=== PATIENT | female | born 1960 | race Caucasian/White ===

== ENCOUNTER → 2017-12-27 13:16 | Outpatient (CLI) | payer BC, SELFPAY ==
--- NOTE | 2017-12-27 | DI.ECHO.S_ITS ---
[facility] +---------+ : : [address] : [address] [place] : : : : [id number] : : : : Phone: [phone] Echocardiogram Report + + :Name: MELANY MONAE Study Date: 12/27/2017 Height: 67 in : :[facility] Exam Location: [facility] Weight: 300 lb : : Gender: Female BSA: 2.4 m2 : :: 1960 Age: 57 yrs BP: 108/80 mmHg: :Reason For Study: MURU : :Ordering Physician: : :Meghna Stevenson Performed By: Ping Colin : :Referring: MEGHNA STEVENSON : + + Interpretation Summary 1) Normal left ventricular size, wall motion, and systolic function (EF 55- 60%). 2) Grossly, normal right ventricular size and function. 3) No significant valvular abnormalities. 4) No prior Echo available for comparison. Procedure: A two-dimensional transthoracic echocardiogram with color flow and Doppler was performed. The study quality was technically adequate. There is no prior echocardiogram noted for this patient. The patient was in normal sinus rhythm during the exam. Left Ventricle: The left ventricle is normal in size. Left ventricular wall thickness is at the upper limits of normal. The left ventricular ejection fraction is normal. The ejection fraction is estimated to be 55-60%. There are no obvious focal wall motion abnormalities noted but poor endocardial definition reduces the sensitivity for the detection of such. Diastolic parameters suggest probable normal left ventricular diastolic function and normal filling pressures. Right Ventricle: The right ventricle grossly appears normal in size with probable normal systolic function. Atria: The left atrium is mildly dilated. The right atrium is normal in size. There is no Doppler evidence for an interatrial shunt. Mitral Valve: The mitral valve leaflets are slightly calcified. There is mild mitral annular calcification. There is trace mitral regurgitation. Aortic Valve: The aortic valve is normal in structure and function. There is no aortic valve stenosis. No aortic regurgitation is present. Tricuspid Valve: The tricuspid valve is normal. There is a trace or physiologic amount of tricuspid regurgitation. The right ventricular systolic pressure is estimated to be at least least 23 mmHg based on an estimated right atrial pressure of 3 mm Hg. Pulmonic Valve: The pulmonic valve is not well visualized. Great Vessels: The aortic root is normal size. The ascending aorta is normal in size. The aortic arch could not be visualized. The pulmonary is not well visualized. The IVC is of normal diameter and collapses greater than 50% with a sniff. This suggests a low right atrial pressure of 3 mm Hg. Pericardium/ Pleura There is no pericardial effusion. There is no pleural effusion. MMode/2D Measurements & Calculations LVIDd: 4.4 cm LVOT diam: 1.9 cm LVIDs: 3.0 cm Ao root diam: 2.8 cm FS: 31.1 % asc Aorta Diam: 3.4 cm EPSS: 0.43 cm IVSd: 1.1 cm LVPWd: 0.98 cm LV estes. diameter/BSA (cm/m^2): 1.8 LV sys. diameter/BSA (cm/m^2): 1.3 LA A2 area: 28.3 cm2 RA long axis: 6.2 cm LA A4 area: 23.5 cm2 RA area: 18.7 cm2 LA length (vol): 6.2 cm RA vol: 47.7 ml LA vol: 90.6 ml RA : 19.9 ml/m2 LA vol index: 37.7 ml/m2 IVC diam: 1.5 cm TAPSE: 2.0 cm Doppler Measurements & Calculations Ao V2 max: 104.0 cm/sec LVOT Max Russell: 103.0 cm/sec Ao V2 mean: 78.9 cm/sec LV V1 max P.2 mmHg Ao max P.3 mmHg LV V1 VTI: 18.7 cm Ao mean P.7 mmHg STEPHON(I,D): 3.0 cm2 Ao V2 VTI: 17.5 cm STEPHON(V,D): 2.8 cm2 sev ratio: 1.1 STEPHON indexed to BSA (cm^2/m^2): 1.3 MV E max russell: 82.1 cm/sec TR max russell: 225.2 cm/sec MV A max russell: 67.3 cm/sec TR max P.3 mmHg MV E/A: 1.2 PA V2 max: 80.3 cm/sec Med Peak E' Russell: 8.1 cm/sec PA V2 mean: 56.7 cm/sec E/E' med: 10.1 PA mean P.4 mmHg Lat Peak E' Russell: 9.4 cm/sec PA pr(Accel): 39.1 mmHg E/E' lat: 8.8 E/e' average: 9.4 MV dec time: 0.21 sec Reading Physician:06:46 PM
== END ==
PROVIDERS: PCP Family Medicine; Visit Provider Family Medicine
DX: R01.1 Cardiac murmur, unspecified (principal)
CPT/HCPCS: 93306

== ENCOUNTER → 2019-08-21 17:52 | Outpatient (CLI) | payer BC, SELFPAY ==
--- NOTE | 2019-08-21 17:55 | DI.RAD.S_ITS ---
PROCEDURE: XR LUMBAR SPINE 2-3V INDICATIONS: LOW BACK PAIN TECHNIQUE: 3 views of the lumbar spine were acquired. COMPARISON: [facility], MR, L-SPINE WITHOUT CONTRAST, 12/13/2005, 17:45. FINDINGS: Bones: 5 [id number] vertebrae are present. Near normal alignment. No acute vertebral body compression fractures. No suspicious bony lesions. Soft tissues: Overlying bowel gas pattern is normal. No suspicious soft tissue calcifications. Enteric tube projecting over the distal stomach. Clips in the pelvis bilaterally. IMPRESSION: No acute compression fracture. If trauma was significant consider further evaluation with CT abdomen pelvis with IV contrast. Dictated by: Jass Gil M.D. on 08/22/2019 at 9:34 Approved by: Jass Gil M.D. on 08/22/2019 at 9:38
== END ==
PROVIDERS: PCP Family Medicine; Referring Provider Family Medicine; Visit Provider Family Medicine
DX: M54.5 Low back pain (principal)
CPT/HCPCS: 72100

== ENCOUNTER → 2019-09-18 18:48 | Outpatient (CLI) | payer BC, SELFPAY ==
--- NOTE | 2019-09-18 18:49 | DI.MRI.S_ITS ---
PROCEDURE: MR LUMBAR SPINE WO CON INDICATIONS: LUMBAR RADICULOPATHY TECHNIQUE: Noncontrast sagittal T1 spin echo and T2 fast echo, sagittal STIR, axial T1 and T2 fast spin echo through the lumbar spine. In cases with scoliosis, additional coronal T2 fast spin echo may be performed. COMPARISON: [facility], CR, XR LUMBAR SPINE 2-3V, 08/21/2019, 17:50. [facility], MR, L-SPINE WITHOUT CONTRAST, 09/02/2015, 19:20. FINDINGS: Image quality: Excellent. Alignment and Curvature: 5 lumbar type vertebral bodies are present by plain film. There is mild grade 1 anterolisthesis of L4 on L5. Mild grade 1 retrolisthesis of L5 on S1. Bone Marrow: Marrow is of normal overall signal. No acute vertebral body compression fractures. There is mild reactive signal within the endplates adjacent to the L4-L5 and L5-S1 intervertebral discs. Spinal Cord: Conus medullaris terminates at the lower L1 level. Visualized cord demonstrates normal signal and size. Paraspinous Soft Tissues: No paravertebral masses. L1-L2: Mild facet and ligamentum flavum hypertrophy. Mild epidural lipomatosis. Mild canal stenosis. Mild bilateral foraminal stenosis. No change. L2-L3: Mild facet and ligamentum flavum hypertrophy. Mild epidural lipomatosis. Mild canal stenosis. Mild bilateral foraminal stenosis. No change. L3-L4: Mild facet and ligamentum flavum hypertrophy. Mild epidural lipomatosis. There is increased, moderate canal stenosis. No change in mild bilateral foraminal stenosis. L4-L5: Moderate disc desiccation. Mild diffuse disc bulge. Mild facet and ligamentum flavum hypertrophy. Mild epidural lipomatosis. Mild canal stenosis. Mild bilateral foraminal stenosis. No change. L5-S1: Moderate disc height loss and desiccation. Mild diffuse disc bulge. Mild bilateral facet hypertrophy. Mild canal stenosis. Mild bilateral foraminal stenosis. No change. IMPRESSION: 1. Multilevel degenerative disc and facet disease, as well as ligamentum flavum hypertrophy and epidural lipomatosis. 2. Multilevel canal stenosis, worst at L3-L4, where there is increased, moderate canal stenosis. 3. Mild multilevel foraminal stenosis. Dictated by: Mary Vick M.D. on 09/19/2019 at 9:33 Approved by: Mary Vick M.D. on 09/19/2019 at 9:43
== END ==
PROVIDERS: PCP Family Medicine; Referring Provider Family Medicine; Visit Provider Family Medicine
DX: M51.16 Intervertebral disc disorders with radiculopathy, lumbar region (principal); M51.17 Intervertebral disc disorders with radiculopathy, lumbosacral region; M48.061 Spinal stenosis, lumbar region without neurogenic claudication; M48.07 Spinal stenosis, lumbosacral region; E88.2 Lipomatosis, not elsewhere classified
CPT/HCPCS: 72148

== ENCOUNTER 2019-09-22 17:03 | Observation (INO) | payer BC, SELFPAY ==
[2019-09-22] VITALS (14 sets, daily range): BP systolic 141–173; BP diastolic 70–93; PULSE 74–96; RESP 13–27; TEMP 36.3–36.6; O2SAT 97–100; BMI 47.0
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
--- NOTE | 2019-09-22 18:50 | DI.CT.S_ITS ---
PROCEDURE: CT ANGIO HEAD AND NECK INDICATIONS: dizziness, stroke eval TECHNIQUE: Pre-contrast 4.5 mm thick sections acquired from the foramen magnum to the vertex. After the administration of intravenous contrast, 1 mm thick sections acquired from the aortic arch through the [place] of [place]. Post-contrast 4.5 mm thick sections then re-acquired from the foramen magnum to the vertex. 3-dimensional wopnvne-lvnvsesyo-njnlrvntyb (MIP) and/or volume rendering reformats were acquired of the central intracranial vasculature and neck separately. COMPARISON: None. FINDINGS: Image quality: Excellent. BRAIN: CSF spaces: Ventricles are normal in size and shape. Basal cisterns are patent. No extra-axial fluid collections. Brain: No midline shift. No intracranial bleeds or masses. Robison-white matter interface appears intact. Skull and face: Calvarium and facial bones appear intact, without suspicious lesions. Orbits appear normal. Sinuses: Sinuses and mastoids are clear. HEAD CT ANGIOGRAPHY: Anterior circulation: Intracranial internal carotid arteries are normal in size and flow. Atrophic appearing left A1 segment The flow within the paired anterior cerebral arteries is normal and symmetric. The flow within the middle cerebral arteries is normal and symmetric. The anterior communicating artery is seen. No aneurysms are seen. Posterior circulation: Visualized portions of the vertebral arteries demonstrate normal caliber, and join to form a normal appearing basilar artery. Flow within the posterior cerebral arteries is normal and symmetric. No aneurysms are seen. NECK CT ANGIOGRAPHY: Carotid system: The great vessels demonstrate a conventional anatomy as they arise from the aortic arch. The origins of the common carotid arteries appear patent. The common carotid arteries demonstrate normal caliber and courses. The bifurcation regions are both widely patent. The internal carotid arteries demonstrate normal calibers and courses. There is minimal right carotid atherosclerosis. Posterior circulation: The origins of the vertebral arteries both appear widely patent. The more superior extracranial portions of both vertebral arteries also demonstrate normal courses and calibers. They join to form a normal appearing basilar artery. Coronary artery calcifications are present. Bones: No suspicious bony lesions. Cervical spondylosis and straightening of the normal lordotic curvature.. IMPRESSION: No focal intracranial stenosis or occlusion No hemodynamically significant ICA stenosis Any quantitative measurements of stenosis were performed using NASCET criteria. Dictated by: Konstantin Che M.D. on 09/22/2019 at 19:53 Approved by: Konstantin Che M.D. on 09/22/2019 at 19:58
--- NOTE | 2019-09-22 18:50 | DI.CT.S_ITS ---
PROCEDURE: CT HEAD/BRAIN WO CON INDICATIONS: dizziness, stroke eval NO TPA TECHNIQUE: Noncontrast 4.5 mm thick angled axial sections acquired from the foramen magnum to the vertex, with coronal and sagittal reformats. For radiation dose reduction, the following was used: automated exposure control, adjustment of mA and/or kV according to patient size. COMPARISON: None. FINDINGS: Image quality: Excellent. CSF spaces: Basal cisterns are patent. No extra-axial fluid collections. Ventricles are normal in size and shape. Brain: No midline shift. No intracranial masses or hemorrhage. Robison-white matter interface is normal. Skull and face: Calvarium and visualized facial bones are intact, without suspicious lesions. Sinuses: Visualized sinuses and mastoids are clear. IMPRESSION: No acute intracranial process. Dictated by: Konstantin Che M.D. on 09/22/2019 at 19:22 Approved by: Konstantin Che M.D. on 09/22/2019 at 19:23
[2019-09-22] MEDS: ONDANSETRON 4 MG/2 ML INJ IV (18:57)
[2019-09-22] MEDS: SODIUM CHLORIDE 0.9% 1,000 ML 1000 ML IV (18:57)
[2019-09-22 19:07] LABS: Add Manual Diff / Slide Review NO; Basophils Absolute Auto 100 /uL (0-100); Basophils Percent Auto 0.9 % (0-2); Eosinophils Absolute Auto 100 /uL (0-450); Eosinophils Percent Auto 0.6 % (2-4); Hematocrit 41.6 % (36-46); Hemoglobin 13.8 g/dL (12.0-16.0); Lymphocytes Absolute Auto 1400 /uL (1100-4500); Lymphocytes Percent Auto 15.8 % (25-40); Mean Corpuscular HGB Conc 33.2 % (30-36); Mean Corpuscular Hemoglobin 28.6 PG (26-34); Mean Corpuscular Volume 86.4 fL (80-100); Monocytes Absolute Auto 300 /uL (0-900); Monocytes Percent Auto 3.9 % (3-14); Neutrophils Absolute Auto 6900 /uL (1500-7000); Neutrophils Percent Auto 78.8 % (50-75); Platelet Count 280 X10^3/uL (150-400); Red Blood Cell Count 4.82 X10^6/uL (4.0-5.2); White Blood Cell Count 8.8 X10^3/uL (4.5-11.0)
[2019-09-22 19:18] LABS: Creatine Kinase 74 U/L (30-135)
[2019-09-22 19:19] LABS: Alanine Aminotransferase 26 IU/L (<35); Albumin 4.2 g/dL (3.5-5.0); Albumin Globulin Ratio 1.5 (1.0-2.8); Alkaline Phosphatase 102 U/L (38-126); Aspartate Aminotransferase 40 IU/L (14-36); BUN Creatinine Ratio 17.7 (6-22); Bilirubin Total 0.8 mg/dL (0.2-1.3); Blood Urea Nitrogen 14 mg/dL (7-17); Calcium 10.1 mg/dL (8.4-10.2); Carbon Dioxide 29 mmol/L (22-32); Chloride 96 mmol/L (98-107); Estimated Glomerular Filt Rate > 60.0 mL/min (>60); Globulin 2.8 g/dL (1.7-4.1); Glucose 352 mg/dL (70-100); HEMOLYSIS 20 (0-50); Potassium 3.3 mmol/L (3.4-5.1); Sodium 137 mmol/L (137-145)
[2019-09-22 19:31] LABS: Troponin I < 0.012 ng/mL (0.01-0.034)
[2019-09-22] MEDS: MECLIZINE HCL 12.5 MG TABLET 50 MG PO (20:13)
[2019-09-22 21:01] LABS: RBC Urine None Seen (0-5/HPF)
[2019-09-22] MEDS: ASPIRIN 81 MG CHEW TAB 324 MG PO (21:03)
[2019-09-22 21:19] LABS: Bacteria Urine Few (2-10); Culture Indicated Urine Cult Not Indicated; Squamous Epithelial Cell Urine 1-5 /HPF (0-5/HPF); WBC Urine 0-1/HPF (0-5/HPF)
[2019-09-22] MEDS: SODIUM CHLORIDE 0.9% 1,000 ML 125 ML IV (22:45)
[2019-09-23] VITALS (8 sets, daily range): BP systolic 135–156; BP diastolic 75–104; PULSE 77–97; RESP 16–18; TEMP 36.3–37; O2SAT 93–99
[2019-09-23 00:01] LABS: COVID19 -Nasal RAPID Negative (Negative)
[2019-09-23] MEDS: MECLIZINE HCL 12.5 MG TABLET 25 MG PO (06:05)
[2019-09-23] MEDS: SODIUM CHLORIDE 0.9% 1,000 ML 125 ML IV (06:06)
--- NOTE | 2019-09-23 08:42 | DI.ECHO.S_ITS ---
[facility]---------+ [facility] +---------+ : : [address] : : : : [id number] : : : : Phone: [phone]+ Echocardiogram Report + + :Name: MELANY BELLA Study Date: 09/23/2019 Height: 67 in : :Hospital Weight: 300 lb : : Gender: Female BSA: 2.4 m2 : :: 1960 Age: 59 yrs BP: 135/83 mmHg: :Reason For Study: R/O CVA : :Ordering Physician: HOSPITALIST, : :JULITO Performed By: Marly Walker : :Referring: MATTHEW CHACON : + + Interpretation Summary The left ventricle is normal in size and wall thickness. Left ventricular systolic function is normal without focal wall motion abnormalities. The ejection fraction is estimated to be 60-65%. The right ventricle is normal in size and function. The right ventricular systolic pressure is estimated to be at least 23 mmHg based on an estimated right atrial pressure of 3 mm Hg. Both atria are normal in size. There is no Doppler evidence for an interatrial shunt. Injection of contrast documented no interatrial shunt. There is no significant valvular heart disease. The ascending aorta is mildly enlarged. Procedure: A two-dimensional transthoracic echocardiogram with color flow and Doppler was performed. The study quality was technically adequate. There is no prior echocardiogram noted for this patient. The injection was performed through an intravenous line in the right arm. A saline contrast injection was performed to assess for cardiac shunting. The patient was in sinus rhythm with heart rates between 76-88 bpm during the exam. Left Ventricle: The left ventricle is normal in size and wall thickness. Left ventricular systolic function is normal without focal wall motion abnormalities. The ejection fraction is estimated to be 60-65%. Diastolic parameters suggest a relaxation abnormality of the left ventricle, consistent with probable normal filling pressures. Right Ventricle: The right ventricle is normal in size and function. Atria: Both atria are normal in size. There is no Doppler evidence for an interatrial shunt. Injection of contrast documented no interatrial shunt. Mitral Valve: The mitral valve leaflets appear mildly thickened, but open well. There is mild mitral annular calcification. There is trace mitral regurgitation. Aortic Valve: The aortic valve is mildly calcified. The aortic valve is trileaflet. The aortic valve opens well. There is no aortic valve stenosis. There is trace aortic regurgitation. Tricuspid Valve: The tricuspid valve is normal in structure and function. There is mild tricuspid regurgitation. The right ventricular systolic pressure is estimated to be at least 23 mmHg based on an estimated right atrial pressure of 3 mm Hg. Pulmonic Valve: The pulmonic valve is not well visualized. The pulmonic valve is not well seen, but is grossly normal. There is trace pulmonic regurgitation. There is no significant valvular heart disease. Great Vessels: The aortic root is normal size. The ascending aorta is mildly enlarged. The IVC is of normal diameter and collapses greater than 50% with a sniff. This suggests a low right atrial pressure of 3 mm Hg. Pericardium/ Pleura There is no pericardial effusion. There is no pleural effusion. MMode/2D Measurements & Calculations LVIDd: 4.4 cm LVOT diam: 2.0 cm LVIDs: 3.1 cm Ao root diam: 2.4 cm FS: 29.3 % asc Aorta Diam: 3.4 cm EPSS: 0.49 cm Ao Arch Diam (Prox Trans): 3.0 cm IVSd: 0.94 cm LVPWd: 0.98 cm LV estes. diameter/BSA (cm/m^2): 1.8 LV sys. diameter/BSA (cm/m^2): 1.3 LA A2 area: 16.0 cm2 RA long axis: 4.4 cm LA A4 area: 15.5 cm2 RA area: 13.3 cm2 LA length (vol): 5.1 cm RA vol: 33.8 ml LA vol: 41.1 ml RA : 14.1 ml/m2 LA vol index: 17.1 ml/m2 IVC diam: 1.3 cm RVD1 (basal): 2.9 cm TAPSE: 2.4 cm Doppler Measurements & Calculations Ao V2 max: 186.0 cm/sec LVOT Max Russell: 131.0 cm/sec Ao V2 mean: 128.1 cm/sec LV V1 max P.9 mmHg Ao max P.8 mmHg LV V1 VTI: 25.4 cm Ao mean P.4 mmHg STEPHON(I,D): 2.1 cm2 Ao V2 VTI: 40.5 cm STEPHON(V,D): 2.3 cm2 sev ratio: 0.63 STEPHON indexed to BSA (cm^2/m^2): 0.86 MV E max russell: 83.4 cm/sec TR max russell: 224.6 cm/sec MV A max russell: 94.4 cm/sec TR max P.2 mmHg MV E/A: 0.88 PA V2 max: 103.8 cm/sec Med Peak E' Russell: 5.7 cm/sec PA V2 mean: 59.6 cm/sec E/E' med: 14.6 PA mean P.7 mmHg Lat Peak E' Russell: 7.7 cm/sec E/E' lat: 10.9 E/e' average: 12.7 MV dec time: 0.20 sec SV(LVOT): 83.7 ml Reading Physician:01:28 PM
--- NOTE | 2019-09-23 08:45 | DI.MRI.S_ITS ---
PROCEDURE: MR STROKE Pre- and post-contrast brain MRI, non-contrast brain MR angiogram, pre- and postcontrast neck MR angiogram INDICATIONS: r/o CVA TECHNIQUE: Brain: Noncontrast axial T1 spin echo, axial T2 fast spin echo, sagittal and axial FLAIR, coronal T2 fast spin echo, axial gradient echo, axial diffusion and ADC through the brain. After the administration of contrast, axial 3D VIBE of the cranial vasculature and brain. Brain MRA: Non-contrast 3-D time of flight MR angiogram, with multiple gagvzss-evqtirkzk-txvgrcdimx (MIP) reformats performed. Neck MRA: Axial and sagittal TruFISP through the neck. Coronal dynamic MR angiogram during administration of contrast in the arterial and venous phases, with 3-dimenstional cgvioas-waczyvlml-xcopydfnic (MIP) reformats constructed from subtraction images. COMPARISON: [facility], CT, CT HEAD/BRAIN WO CON, 09/22/2019, 19:01. [facility], CT, CT ANGIO HEAD AND NECK, 09/22/2019, 19:05. FINDINGS: Image quality: Excellent. BRAIN: CSF spaces: Ventricles are normal in size and shape. Basal cisterns are patent. No extra-axial fluid collections. Brain: No intracranial bleeds or mass effects. Robison-white matter interface is normal. Diffusion weighted images show no acute ischemic insults. Brainstem appears normal. Normal intravascular flow voids are present. No abnormal intracranial enhancement. Skull and face: Calvarial marrow signal is normal. Orbits appear normal. Sinuses: Sinuses and mastoids are clear. BRAIN MR ANGIOGRAM: Anterior circulation: Intracranial internal carotid arteries are normal in size and enhancement. There is a diminutive left A1 segment, with a corresponding robust right A1 segment. This is considered to be a normal developmental variant of the [place], of typically no clinical consequence. The flow within the paired anterior cerebral arteries is otherwise normal and symmetric. The flow within the middle cerebral arteries is normal and symmetric. The anterior communicating artery is seen. No stenoses, occlusions, or aneurysms. Posterior circulation: The visualized portions of the vertebral arteries demonstrate normal caliber, and join to form a normal appearing basilar artery. The flow within the posterior cerebral arteries is normal and symmetric. No stenoses, occlusions, or aneurysms. NECK MR ANGIOGRAM: Carotids: Great vessels demonstrate a conventional anatomy as they arise from the aortic arch. The origins of the common carotid arteries appear patent. Note is made of an accessory anterior cerebral artery branch, which emanates from the anterior communicating artery itself. The calibers and courses of both common carotid arteries are normal. The bifurcation regions appear normal bilaterally. The internal carotid arteries demonstrate normal course and caliber. Posterior circulation: The origins of the vertebral arteries appear patent. More superior portions of both vertebral arteries demonstrate normal course and caliber, and join to form a normal appearing basilar artery. Miscellaneous: Subclavian arteries appear patent. Pre-contrast images through the neck show no soft tissue abnormalities. IMPRESSION: BRAIN MRI: No findings of acute or subacute infarction can be seen. No acute intracranial process is seen. No masses or abnormal enhancement can be seen. BRAIN MR ANGIOGRAM: No significant intracranial arterial abnormality is seen. Incidental note is made of intracranial developmental anomalies, which are not regarded to be clinically significant. NECK MR ANGIOGRAM: Within the arteries of the neck, no hemodynamically significant stenosis can be seen. Dictated by: Mir Cheng M.D. on 09/23/2019 at 10:53 Approved by: Mir Cheng M.D. on 09/23/2019 at 10:56
[2019-09-23] MEDS: ONDANSETRON 4 MG/2 ML INJ IV ×2 (08:58→15:22)
[2019-09-23 09:12] LABS: Add Manual Diff / Slide Review NO; Basophils Absolute Auto 100 /uL (0-100); Basophils Percent Auto 1.2 % (0-2); Eosinophils Absolute Auto 200 /uL (0-450); Eosinophils Percent Auto 2.7 % (2-4); Hematocrit 35.6 % (36-46); Hemoglobin 11.9 g/dL (12.0-16.0); Lymphocytes Absolute Auto 2600 /uL (1100-4500); Lymphocytes Percent Auto 38.8 % (25-40); Mean Corpuscular HGB Conc 33.3 % (30-36); Mean Corpuscular Hemoglobin 28.8 PG (26-34); Mean Corpuscular Volume 86.4 fL (80-100); Monocytes Absolute Auto 500 /uL (0-900); Monocytes Percent Auto 7.5 % (3-14); Neutrophils Absolute Auto 3300 /uL (1500-7000); Neutrophils Percent Auto 49.8 % (50-75); Platelet Count 254 X10^3/uL (150-400); Red Blood Cell Count 4.12 X10^6/uL (4.0-5.2); White Blood Cell Count 6.7 X10^3/uL (4.5-11.0)
[2019-09-23 09:22] LABS: Alanine Aminotransferase 20 IU/L (<35); Albumin 3.5 g/dL (3.5-5.0); Albumin Globulin Ratio 1.3 (1.0-2.8); Alkaline Phosphatase 92 U/L (38-126); Aspartate Aminotransferase 26 IU/L (14-36); BUN Creatinine Ratio 17.8 (6-22); Bilirubin Total 0.5 mg/dL (0.2-1.3); Blood Urea Nitrogen 13 mg/dL (7-17); Calcium 9.1 mg/dL (8.4-10.2); Carbon Dioxide 29 mmol/L (22-32); Chloride 102 mmol/L (98-107); Estimated Glomerular Filt Rate > 60.0 mL/min (>60); Globulin 2.8 g/dL (1.7-4.1); Glucose 287 mg/dL (70-100); HEMOLYSIS < 15 (0-50); Sodium 138 mmol/L (137-145); Total Protein 6.3 g/dL (6.3-8.2)
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
--- NOTE | 2019-09-23 10:49 | PC.NURSE ---
Day shift: Pt off unit for MRI at approx 1030. Remains off unit at this time.
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
--- NOTE | 2019-09-23 11:21 | PC.NURSE ---
Day shift: Pt back on unit at approx 1115.
[2019-09-23] MEDS: INSULIN ASPART 100 UNIT/ML INSULN PEN SUBCUT ×3 (12:16→21:29)
[2019-09-23] MEDS: POTASSIUM CHLORIDE 40 MEQ in SODIUM CHLORIDE 0.9% 500 ML 130 ML IV (13:09)
[2019-09-23] MEDS: KCL 40 MEQ IN NS 1,000 ML 125 MEQ IV (13:15)
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
[2019-09-23] MEDS: ENOXAPARIN 40 MG/0.4 ML SYRINGE SUBCUT (13:22)
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
[2019-09-23] MEDS: diazePAM 5 MG TABLET PO (15:22)
[2019-09-23] MEDS: cloNIDine 0.1 MG TABLET 0.2 MG PO (21:33)
[2019-09-23] MEDS: DULOXETINE 30 MG CAPSULE PO (21:33)
[2019-09-23] MEDS: glipiZIDE XL 5 MG TAB PO (21:33)
[2019-09-23] MEDS: SIMVASTATIN 20 MG TABLET PO (21:33)
[2019-09-24] MEDS: KCL 40 MEQ IN NS 1,000 ML 125 MEQ IV (01:34)
[2019-09-24] MEDS: MECLIZINE HCL 12.5 MG TABLET 25 MG PO (01:59)
[2019-09-24 05:25] VITALS: BP 125/75; PULSE 62; RESP 16; TEMP 36.2; O2SAT 97
[2019-09-24 05:40] LABS: Add Manual Diff / Slide Review NO; Basophils Absolute Auto 100 /uL (0-100); Basophils Percent Auto 0.9 % (0-2); Eosinophils Absolute Auto 300 /uL (0-450); Eosinophils Percent Auto 5.5 % (2-4); Hematocrit 34.1 % (36-46); Hemoglobin 11.1 g/dL (12.0-16.0); Lymphocytes Absolute Auto 2800 /uL (1100-4500); Mean Corpuscular HGB Conc 32.5 % (30-36); Mean Corpuscular Hemoglobin 28.6 PG (26-34); Mean Corpuscular Volume 87.8 fL (80-100); Monocytes Absolute Auto 600 /uL (0-900); Monocytes Percent Auto 9.1 % (3-14); Neutrophils Absolute Auto 2400 /uL (1500-7000); Neutrophils Percent Auto 38.5 % (50-75); Platelet Count 224 X10^3/uL (150-400); Red Blood Cell Count 3.88 X10^6/uL (4.0-5.2); Red Cell Distribution Width 14.4 % (11.6-14.8); White Blood Cell Count 6.2 X10^3/uL (4.5-11.0)
[2019-09-24 05:45] LABS: Alanine Aminotransferase 17 IU/L (<35); Albumin 3.2 g/dL (3.5-5.0); Albumin Globulin Ratio 1.3 (1.0-2.8); Alkaline Phosphatase 78 U/L (38-126); Aspartate Aminotransferase 24 IU/L (14-36); BUN Creatinine Ratio 16.9 (6-22); Bilirubin Total 0.4 mg/dL (0.2-1.3); Blood Urea Nitrogen 13 mg/dL (7-17); Calcium 9.1 mg/dL (8.4-10.2); Carbon Dioxide 26 mmol/L (22-32); Chloride 107 mmol/L (98-107); Estimated Glomerular Filt Rate > 60.0 mL/min (>60); Globulin 2.4 g/dL (1.7-4.1); Glucose 251 mg/dL (70-100); HEMOLYSIS < 15 (0-50); Sodium 138 mmol/L (137-145); Total Protein 5.6 g/dL (6.3-8.2)
[2019-09-24] MEDS: ONDANSETRON 4 MG/2 ML INJ IV (06:37)
[2019-09-24 08:00] VITALS: BP 141/84; PULSE 78; RESP 16; TEMP 36.1; O2SAT 97
[2019-09-24] MEDS: cloNIDine 0.1 MG TABLET 0.2 MG PO ×2 (09:03→20:58)
[2019-09-24] MEDS: buPROPion XL 150 MG TAB 300 MG PO (09:03)
[2019-09-24] MEDS: LOSARTAN 50 MG TABLET 100 MG PO (09:03)
[2019-09-24] MEDS: glipiZIDE XL 5 MG TAB PO ×2 (09:03→20:58)
[2019-09-24] MEDS: DULOXETINE 30 MG CAPSULE PO ×2 (09:03→20:58)
[2019-09-24] MEDS: ENOXAPARIN 40 MG/0.4 ML SYRINGE SUBCUT (09:03)
[2019-09-24] MEDS: INSULIN ASPART 100 UNIT/ML INSULN PEN SUBCUT ×4 (09:04→20:58)
[2019-09-24] MEDS: diazePAM 2 MG TABLET PO ×2 (09:12→20:57)
[2019-09-24 11:23] VITALS: BP 124/73; PULSE 85; RESP 15; TEMP 37.1; O2SAT 97
--- NOTE | 2019-09-24 12:39 | PC.NURSE ---
Addendum entered by Jane Solorio R.N. 09/24/19 12:42: Patient is awake and eating lunch. Tolerating well... O nausea noted. Original Note: Patient denies nausea while resting in bed. This is mostly happening when she gets up and ambulates to use the bathroom. She will work with a Vestibular therapist due to be here around 1345. in and saw patient earlier and has put patient on Valuim 2mg routinely. She has been sleeping quite a lot on this shift.
--- NOTE | 2019-09-24 13:46 | P.PN_ITS ---
Subjective Subjective Date Patient Seen: 09/24/19 Time Patient Seen: 08:39 Interval history: Patient overall continues to feel quite dizzy this morning. She did feel better when she was given the 1 dose of Valium last night. Got some sleep. Overnight had no major issues but woke up this morning quite dizzy. Nauseated. No headaches. No numbness or tingling. But just does not feel well. Does not feel like she can go home. Does not feel like she will function well. Exam Vital Signs (past 8 hours): - 09/24/19 08:00 09/24/19 11:23 Temperature 96.9 F L 98.7 F Pulse Rate 78 85 Respiratory Rate 16 15 Blood Pressure 141/84 H 124/73 Pulse Oximetry 97 97 Oxygen Delivery Method Room Air Oxygen Flow Rate 0 Narrative Exam Narrative: Alert obese female lying in bed with tell on had no acute distress. Fatigued in appearance HEENT mucous membranes moist neck supple wit hout adenopathy lungs are clear. Heart regular rate and rhythm. Neurologic exam is nonfocal she does have some lateral gaze nystagmus but is not consistent. [id number] is normal Objective Labs Result Diagrams: 09/24/19 05:00 09/24/19 05:00 Labs: Laboratory Results - last 24 hr 09/24/19 09/24/19 05:00 05:00 WBC 6.2 RBC 3.88 L Hgb 11.1 L Hct 34.1 L MCV 87.8 MCH 28.6 MCHC 32.5 RDW 14.4 Plt Count 224 Neut % (Auto) 38.5 L Lymph % (Auto) 46.0 H [place] % (Auto) 9.1 Eos % (Auto) 5.5 H Baso % (Auto) 0.9 Neut # (Auto) 2400 Lymph # (Auto) 2800 [place] # (Auto) 600 Eos # (Auto) 300 Baso # (Auto) 100 Sodium 138 Potassium 4.0 Chloride 107 Carbon Dioxide 26 BUN 13 Creatinine 0.77 Estimated GFR > 60.0 BUN/Creatinine Ratio 16.9 Glucose 251 H Calcium 9.1 Total Bilirubin 0.4 AST 24 ALT 17 Alkaline Phosphatase 78 Total Protein 5.6 L Albumin 3.2 L Globulin 2.4 Albumin/Globulin Ratio 1.3 Assessment & Plan Assessment & Plan narrative: Vertigo. Probably labyrinth related. Negative CT. Negative MRI MRA. No evidence of significant intra vascular compromise. Pretty significantly affected. At this point will go 2 consistent p.o. treatment not as needed. Will continue physical therapy and re-evaluate in a.m.. Hopefully will be able to go home. Type 2 diabetes. Overall doing well. Will follow as outpatient has traditionally been well controlled. Hypertension. Actually blood pressure looks pretty good today. Will continue to follow. Probably not related cause. Depression. Stable. Continue usual medicines. Hyperlipidemia. On medicine. Code status full. Disposition. Patient otherwise stable. But not able to go home due to significant symptoms at this point. Adjusting medications and will hopefully sent home in a.m..
--- NOTE | 2019-09-24 14:42 | CM.DPNOTE ---
Updated by Johana STRONG who spoke to Ping - vistibular therapist with PT. Ping supported the opinion of other therapist that pt. has BPPV (benign paroxysmal positional vertigo) and will need outpt. Called PMD office and left message about Ping's update and the [facility] nurse concurrent review leaves admission status the same.
[2019-09-24 15:40] VITALS: BP 128/79; PULSE 79; RESP 16; TEMP 36.3; O2SAT 96
--- NOTE | 2019-09-24 15:50 | PT.IPTN ---
Physical Therapy Treatment Note M2 PT-IP Current Condition Start: 09/23/19 12:52 Freq: NEEDED Status: Active Protocol: Document 09/23/19 11:17 AB (Rec: 09/23/19 13:18 AB [id number]) Physical Therapy Current Condition Current Condition Evaluation Date 09/23/19 Treatment Diagnosis dizziness; difficulty in walking Onset Date 09/22/19 M3 PT-IP Subjective Start: 09/23/19 12:52 Freq: NEEDED Status: Active Protocol: Document 09/24/19 13:50 MB (Rec: 09/24/19 15:50 MB [id number]) Subjective Physical Therapy Visit Type Type Treatment Note Visit Start Time 13:50 Visit Stop Time 14:20 Total Visit Minutes 30 Number of SHANKER OUT Visits 0 Physical Therapy Visit Comments Patient Comments Pt reports dizziness is better than yesterday. She had a little when getting up to the BR. M4 PT-IP Mobility and Gait Start: 09/23/19 12:52 Freq: NEEDED Status: Active Protocol: Document 09/24/19 13:50 MB (Rec: 09/24/19 15:50 MB [id number]) PT-Bed Mobility Assessment Rolling Type of Rolling Roll to Left Level of Assist Standby Assistance Supine to Sit Supine to Sit Standby Assistance Scooting Scooting to Edge of Bed Standby Assistance PT-Transfer Assessment Sit to and From Stand Sit to and from Stand Standby Assistance Gait Assessment Gait Gait Assistance Required: Standby Assistance Distance (Feet) 75 Assistive Devices Assistive Device Gait Belt Gait Deviations General Gait Pattern Decreased Feet Clearance,Wide Based Gait Factors Limiting Gait Function Factors Limiting Gait Function Poor Balance Comments Gait Comments SBA to gait train in hallway to the steps and back: pt with imbalance, she reports some light-headedness. 75'x2 Stair Climbing Assessment Evaluation Level of Assist On Stairs Standby Assistance Devices Stair Climbing Assistive Devices Right Railing Technique/Endurance Stair Climbing Direction Ascend and Descend Stair Climbing Technique Step Over Step Number of Steps Climbed 3 Stair Climbing Set # Repetitions (reps) 1 PT-Balance Assessment Sitting Balance and Reactions Static Sitting Balance Ability Good Dynamic Sitting Balance Ability Good Standing Balance and Reactions Static Standing Balance Ability Fair Dynamic Standing Balance Ability Fair M5 PT-IP Objective Assessments Start: 09/23/19 12:52 Freq: NEEDED Status: Active Protocol: Document 09/23/19 14:35 DCW (Rec: 09/23/19 16:17 DCW [id number]) Other Assessments Other Other Assessments L side-lying test: Negative R side-lying test: pt complained of vertigo and demonstrated very strong up- beating, torsional nystagmus lasting approximately 20 seconds M6 PT-IP Treatment Start: 09/23/19 12:52 Freq: NEEDED Status: Active Protocol: Document 09/24/19 13:50 MB (Rec: 09/24/19 15:50 MB [id number]) Physical Therapy Treatment Other Treatments Other Treatment Performed BPPV testing: B Kiarra-Hallpike negative for nystagmus. B Roll Test positive more mild geotropic nystagmus, worse on the right and treated for right horizontal canalithiasis . Pt feels better after treatment. M7 PT-IP Assessment and Plan Start: 09/23/19 12:52 Freq: NEEDED Status: Active Protocol: Document 09/24/19 13:50 MB (Rec: 09/24/19 15:50 MB [id number]) PT Summary Assessment and Plan Potential Rehabilitation Potential Good Status of Condition at Evaluation Stable Summary Assessment Summary Pt's symptoms and nystagmus are much better today. She is able to ambulate in the hallway with SBA and perform gait training. She has and daughter asst at home. Recommend d/t home with superv /SBA and con't with OPPT vestibular PT. Goals Bed Mobility Goal Independent Transfer Goal Independent Gait Goal Independent Gait Distance 200 Other Goals up/down 1 flight R rail ascending mod I Days to Meet Goals 5 Frequency of Treatment Frequency Of Treatment Once a Day Treatment Plan Physical Therapy Treatment Plan Bed Mobility Training,Transfer Training,Gait Training, Balance Retraining,Discharge Planning,Neuromuscular Re-ed Recommendations To Nursing Amount of Assist Needed 1 Person Assist Discharge Recommendations PT Discharge Recommendations Home with Assistance Other Discharge Recommendations OPPT vestibular PT consult Transportation Needs at Discharge Private Vehicle
--- NOTE | 2019-09-24 17:46 | PC.NURSE ---
Patient sitting up in chair at the beginning of the shift. Up independently in the room. Denies feeling dizzy, has refused 2 doses of scheduled Valium d/t feeling too sleepy. Patient has been A&O, calm and cooperative.
[2019-09-24 19:50] VITALS: BP 137/76; PULSE 80; RESP 17; TEMP 37.1; O2SAT 96
[2019-09-24] MEDS: SIMVASTATIN 20 MG TABLET PO (20:58)
[2019-09-24 23:00] VITALS: BP 93/53; PULSE 71; RESP 16; TEMP 36.3; O2SAT 97
[2019-09-25 05:00] VITALS: BP 123/71; PULSE 68; RESP 18; TEMP 36.2; O2SAT 97
[2019-09-25 05:54] LABS: Blood Urea Nitrogen 12 mg/dL (7-17); Calcium 9.2 mg/dL (8.4-10.2); Carbon Dioxide 26 mmol/L (22-32); Chloride 108 mmol/L (98-107); Estimated Glomerular Filt Rate > 60.0 mL/min (>60); Glucose 237 mg/dL (70-100); HEMOLYSIS < 15 (0-50); Potassium 4.5 mmol/L (3.4-5.1); Sodium 138 mmol/L (137-145)
[2019-09-25 07:45] VITALS: BP 134/78; PULSE 79; RESP 16; TEMP 36.7; O2SAT 97
--- NOTE | 2019-09-25 08:41 | PT.IPTN ---
Physical Therapy Treatment Note M2 PT-IP Current Condition Start: 09/23/19 12:52 Freq: NEEDED Status: Active Protocol: Document 09/23/19 11:17 AB (Rec: 09/23/19 13:18 AB [id number]) Physical Therapy Current Condition Current Condition Evaluation Date 09/23/19 Treatment Diagnosis dizziness; difficulty in walking Onset Date 09/22/19 M3 PT-IP Subjective Start: 09/23/19 12:52 Freq: NEEDED Status: Active Protocol: Document 09/25/19 08:18 MB (Rec: 09/25/19 08:41 MB [id number]) Subjective Physical Therapy Visit Type Type Treatment Note Visit Start Time 08:18 Visit Stop Time 08:30 Total Visit Minutes 12 Number of VIDEO AND SOUND RECORDER Visits 0 Physical Therapy Visit Comments Patient Comments Pt denies dizziness, reports being up in room. M4 PT-IP Mobility and Gait Start: 09/23/19 12:52 Freq: NEEDED Status: Active Protocol: Document 09/25/19 08:18 MB (Rec: 09/25/19 08:41 MB [id number]) PT-Bed Mobility Assessment Rolling Type of Rolling Roll to Left Level of Assist Independent Supine to Sit Supine to Sit Independent Scooting Scooting to Edge of Bed Independent PT-Transfer Assessment Sit to and From Stand Sit to and from Stand Independent Equipment Transfer Assistive Device Gait Belt Transfer Ability Level of Assist Independent Gait Assessment Gait Gait Assistance Required: Independent Distance (Feet) 200 Assistive Devices Assistive Device Gait Belt Gait Deviations General Gait Pattern Wide Based Gait Comments Gait Comments Pt is able to gait train I and perform DGI activities without LOB: horizontal and vertical head turns, change in gait speed, turn pivot, B 360 deg without LOB or dizziness Stair Climbing Assessment Evaluation Level of Assist On Stairs Independent Devices Stair Climbing Assistive Devices Right Railing Technique/Endurance Stair Climbing Direction Ascend and Descend Stair Climbing Technique Step Over Step Number of Steps Climbed 3 Stair Climbing Set # Repetitions (reps) 1 PT-Balance Assessment Sitting Balance and Reactions Static Sitting Balance Ability Normal Dynamic Sitting Balance Ability Normal Standing Balance and Reactions Static Standing Balance Ability Normal Dynamic Standing Balance Ability Normal Comments Other Balance Tests/Deviations/Treatment See DGI comments above, WNLs, : did not test weaving around cones or stepping over box Functional Assessments Functional Tests Dynamic Gait Index See comments above M5 PT-IP Objective Assessments Start: 09/23/19 12:52 Freq: NEEDED Status: Active Protocol: Document 09/23/19 14:35 DCW (Rec: 09/23/19 16:17 DCW [id number]) Other Assessments Other Other Assessments L side-lying test: Negative R side-lying test: pt complained of vertigo and demonstrated very strong up- beating, torsional nystagmus lasting approximately 20 seconds M6 PT-IP Treatment Start: 09/23/19 12:52 Freq: NEEDED Status: Active Protocol: Document 09/25/19 08:18 MB (Rec: 09/25/19 08:41 MB [id number]) Physical Therapy Treatment Other Treatments Other Treatment Performed Deferred BPPV assessment d/t no more dizziness and normal gait and balance. Ed pt in benefits of OPPT for vestibular consult M7 PT-IP Assessment and Plan Start: 09/23/19 12:52 Freq: NEEDED Status: Active Protocol: Document 09/25/19 08:18 MB (Rec: 09/25/19 08:41 MB [id number]) PT Summary Assessment and Plan Potential Rehabilitation Potential Excellent Status of Condition at Evaluation Stable Summary Assessment Summary Pt has no more dizziness, presents with I bed mobility, transfers, gait and stairs. She performs normally with DGI tasks. She is ready to d/c acute PT. She has met all acute PT goals. Goals Bed Mobility Goal Independent Transfer Goal Independent Gait Goal Independent Gait Distance 200 Other Goals up/down 1 flight R rail ascending mod I Days to Meet Goals 5 Frequency of Treatment Frequency Of Treatment Discharge Recommendations To Nursing Amount of Assist Needed Standby Assistance Discharge Recommendations PT Discharge Recommendations Home Other Discharge Recommendations OPPT vestibular PT consult Transportation Needs at Discharge Private Vehicle
[2019-09-25] MEDS: glipiZIDE XL 5 MG TAB PO (08:55)
[2019-09-25] MEDS: INSULIN ASPART 100 UNIT/ML INSULN PEN SUBCUT (08:56)
[2019-09-25] MEDS: buPROPion XL 150 MG TAB 300 MG PO (09:15)
[2019-09-25] MEDS: DULOXETINE 30 MG CAPSULE PO (09:16)
[2019-09-25] MEDS: ENOXAPARIN 40 MG/0.4 ML SYRINGE SUBCUT (09:16)
[2019-09-25] MEDS: LOSARTAN 50 MG TABLET 100 MG PO (09:16)
[2019-09-25] MEDS: cloNIDine 0.1 MG TABLET 0.2 MG PO (09:16)
--- NOTE | 2019-09-25 09:36 | PM.DS.1 ---
History of Present Illness History of Present Illness Date Patient Seen: 09/25/19 Time Patient Seen: 09:37 Date of Onset of Symptoms: 09/22/19 Chief complaint: DIZZINESS VOMITING Narrative: see history and physical Discharge Providers Provider Date of admission: 09/22/19 21:09 Discharge Date: 09/25/19 Primary care physician: Mehgna Stevenson MD Consults: 09/23/19 08:49 Consult to Physical Therapy Evaluate & Treat Comment: Physician Instructions: Evaluate and Treat Discharge provider: Raj Weeks MD Summary Hospital Course Discharge Diagnosis: vertigo probable benign positional Type 2 diabetes poorly controlled Hypertension Depression Hyperlipidemia Hospital Course: patient was admitted to the hospital. Placed on IV nausea medicines fluids. Patient really did not seem to improve. She had a negative CT negative CT angiogram. Did not appear to have any evidence of strokes. She had normal posterior circulation evaluation. No other changes. Physical therapy was instituted. Echo showed no abnormality. She really did not improve over the 2nd day and Valium was started on a more consistent basis. Physical therapy actually then re-evaluated and patient was feeling completely normal on day of discharge. It was felt to be secondary either to benign positional or viral labyrinthitis. But normal exam otherwise and will be followed. Type 2 diabetes poorly controlled. Patient has not been compliant with her medication on a consistent basis. Her hemoglobin A1c has been consistently in the 10s. we discussed this pretty extensively. I do not believe this was the cause of her admission but certainly Vj discussed the outcomes of eyes heart kidney and feet issues. There is no question that over time she is going to develop these issues if she does not take this more seriously. I do not want to make any changes in her medication because she has not been consistent in taking the 1 she has had. She will try to be more consistent she seems understand the importance and will follow-up with Dr. Stevenson is an outpatient. Hypertension. Has been good control over the course of her admission no change. Depression. Stable. Continue usual medicines. New hyperlipidemia. No issue will follow. Status at Discharge Cognitive/behavioral status at discharge: oriented Functional status at discharge: independent ambulation Overall status at discharge: patient is progressing back to baseline Time Spent with Patient Time spent: Greater than 30 minutes Exam Vital Signs (past 8 hours): - 09/25/19 05:00 09/25/19 07:45 Temperature 97.2 F L 98.0 F Pulse Rate 68 79 Respiratory Rate 18 16 Blood Pressure 123/71 134/78 Pulse Oximetry 97 97 Oxygen Delivery Method Room Air Oxygen Flow Rate 0 Narrative Exam Narrative: Alert obese female lying in bed much less fatigued in appearance. Eyes are within normal limits. Still has some slight lateral gaze nystagmus primarily left. Pupils are equal response to light. Mucous membranes moist. Neck supple without adenopathy. Lungs are clear. Heart regular rate and rhythm without murmurs clicks rubs or gallops. Abdomen is obese soft. extremities without cyanosis clubbing edema. Neurologic exam is completely nonfocal today. Oacffs-ga-[id number] is normal. Emotionally interactive much brighter today. Objective Labs Result Diagrams: 09/24/19 05:00 09/25/19 05:25 Labs: Laboratory Results - last 24 hr 09/25/19 05:25 Sodium 138 Potassium 4.5 Chloride 108 H Carbon Dioxide 26 BUN 12 Creatinine 0.75 Estimated GFR > 60.0 BUN/Creatinine Ratio 16.0 Glucose 237 H Calcium 9.2 Discharge Assessment & Plan Assessment and Plan Assessment: vertigo. Resolved. Poorly controlled diabetes. Have some work to do on outpatient schedule. Please see summary above Discharge Plan Discharge Plan Patient Disposition: Home Discharge orders & Medications Prescriptions: New meclizine 12.5 mg Tablet 25 mg PO Q6HR PRN (Reason: dizziness) Qty: 60 RF: 1 Continued Vitamin B-12 50 MCG lozenge 50 mcg PO DAILY Qty: 0 RF: 0 POTASSIUM (#POTASSIUM) 75 mg PO DAILY Qty: 0 RF: 0 VITAMIN D 1,000 iu PO DAILY Qty: 0 RF: 0 Metformin Hydrochloride (#GLUCOPHAGE) 500 mg PO BID Qty: 0 RF: 0 bupropion HCl 300 mg tablet extended release 24 hr 300 mg PO DAILY RF: 0 duloxetine 30 mg capsule,delayed release(DR/EC) 30 mg PO DAILY RF: 0 glipizide 5 mg tablet extended release 24hr 5 mg PO BID RF: 0 hydrochlorothiazide 25 mg tablet 25 mg PO DAILY RF: 0 potassium chloride [Klor-Con M10] 10 mEq tablet,ER particles/crystals 10 meq PO DAILY RF: 0 losartan 100 mg tablet 100 mg PO DAILY RF: 0 Follow up/Referrals: Meghna Stevenson MD [Primary Care Provider] - 1 Week (should have appointment already scheduled next week) Discharge Health Status Care Plan Goals: patient to take her diabetic medications on a consistent basis Multidrug resistant organism: No MDRO Diet/Activity/Treatments Diet: Carb-consistent/Diabetic Activity: as tolerated Skin/Wound/Dressing Care Report to your healthcare provider any signs of infection, such as:: chills, fever, night sweats and increased pain Visit Report/Discharge Packet Instructions: Complications of Type 2 Diabetes, DI for Vertigo, DI for Diabetes Type 2 Visit Report Forms: Patient Portal/API, Stroke Signs & Symptoms Discharge Data Primary Care Provider: Meghna Stevenson Attending Provider: Meghna Stevenson Admit Date/Time: 09/22/19 21:09
--- NOTE | 2019-09-25 13:33 | CM.DPNOTE ---
DC Note Patient has been cleared by therapy for DC home and Dr Weeks has medically discharged patient. 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 Patient indp in/out of room. Home w/family JW
--- NOTE | 2019-09-25 13:49 | PC.NURSE ---
Discharge: Feels ready to d/c home. Spouse at bedside. Dr. Allen here and he gave instructions. Reviewed d/c packet, rx esent. Questions answered. Pt was cleared by PT. Pt d/c home via auto w/spouse.
== END 2019-09-25 10:40 | disposition home or self-care (01) ==
LOC: ED 18:33 → AC 21:10
PROVIDERS: Family Medicine; Student in an Organized Health Care Education/Training Program; Admitting Provider Family Medicine; Emergency Provider Emergency Medicine; PCP Family Medicine; Visit Provider Family Medicine
DX: R42 Dizziness and giddiness (principal); E11.9 Type 2 diabetes mellitus without complications; I10 Essential (primary) hypertension; F32.9 Major depressive disorder, single episode, unspecified; E78.5 Hyperlipidemia, unspecified; R11.2 Nausea with vomiting, unspecified; Z11.59 Encounter for screening for other viral diseases
CPT/HCPCS: 36415; 70450; 70496; 70498; 70548; 70553; 80048; 80053; 81003; 81015; 82550; 82962; 84484; 85025; 87635; 93005; 93306; 95992; 96361; 96372; 96374; 97116; 97140; 97162; 99285; G0378; J1650; J2405; J3480

== ENCOUNTER 2019-10-16 09:26 | Outpatient (RCR) | payer BC, SELFPAY ==
[2019-09-22 22:03] VITALS: BMI 47.0
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
--- NOTE | 2019-10-16 11:04 | PT.OPPOC ---
Physical, Occupational & Speech Therapy At [facility] Current Diagnoses Benign paroxysmal vertigo, unspecified ear (10/16/19) Visit Care Team Role Provider Type Meghna Stevenson MD Attending Provider Physician Primary Care Provider Referring Provider Specialty: Family Practice Address: [address] [place] [address], [facility] [place], [address] Email: [email or web address] Plan Of Care PT-OP-T Assessment and Plan Start: 10/15/19 15:24 Freq: Status: Active Protocol: Document 10/16/19 09:45 MB (Rec: 10/16/19 11:03 MB [id number]) Physical Therapy Assessment Rehab Potential Rehabilitation Potential Excellent Evaluation Complexity Number of Personal Factors/Comorbidities 1-2 Number of Body Systems Impaired 1-2 Clinical Presentation at Evaluation Stable Impairments Impairments Balance,Gait,Posture, Vestibular Goals 3 Turnstile Collector Goal (LTG) Pt will report a 95% improvement in dizziness to allow safe return to work by . LTG Duration 1 month 2 Long-Term Goal (LTG) Pt will deny falls by 2019. LTG Duration 1 month 1 Turnstile Collector Goal (LTG) Pt will perform progressive HEP with I including balance, postural and VOR exercises to decrease fall risk and improve quality of life by 11/16/2019. LTG Duration 1 month Assessment Summary Assessment Pt is a 59 y/o female with recent hospitalization for dizziness and was found to have BPPV. She was treated by vestibular PTs, including this therapist, and BPPV was cleared after treatment in the hospital. At discharge, her symptoms were almost resolved and she presented with I gait and good balance. She arrives to OPPT to re-check for BPPV and provide VOR and balance exercises. BPPV testing was negative today for symptoms and nystagmus. Orthostatic assessment was negative, though the BP cuff might have been too tight for pt and her BP was high. Her coordination, strength and oculomotor exams were all WNLs. She did present with high level balance deficits and VOR hypofunction with eye chart exercise and so provided both balance and VOR exercise for home. Her FGA testing presented with normal balance. Of note, once pt left, front office reported that pt tripped on piece of furniture in waiting room before evaluation. Pt did not report this during the eval. PT calls pt to follow-up and she reports that she was carrying clip board with paper work and did not see a small side table next to chair. She denies pain. She was wearing very long and wide bottomed jeans and sandals today for PT and these could have affected balance. 1 more PT follow-up treatment to review progress with HEP and to address any questions. Physical Therapy Plan Frequency and Duration Frequency of Treatment 1 more follow-up Duration of Treatment 4 weeks Plan of Care Start Date 10/16/19 Plan of Care End Date 11/17/19 Therapeutic Interventions Therapeutic Interventions Balance Training,Canalithic Repositioning,Gait Training, Home Exercise Program, Neuromuscular Re-education, Self-Care/Home Management, Therapeutic Activities, Therapeutic Exercises, Vestibular Rehabilitation Next Visit Focus/Plan Next Note Type Treatment Note Next Visit Plan Reassess exercises and address any concerns Plan of Care Dates Plan of Care Start Date 10/16/19 Plan of Care End Date 11/17/19 Electronically Signed by: Ping Starr, PT 10/16/19 2548 Please Sign and Return: I have reviewed this Plan of Care and certify that the skilled therapy services above are required to meet the patient?s needs. Physician Signature Date Printed Name and Credentials Clinical Instructor Signature Printed Name and Credentials
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
== END 2019-10-30 08:28 ==
LOC: PHYS 09:26
PROVIDERS: PCP Family Medicine; Referring Provider Family Medicine; Visit Provider Family Medicine
DX: H81.10 Benign paroxysmal vertigo, unspecified ear (principal)
CPT/HCPCS: 97112; 97161

== ENCOUNTER → 2021-04-19 15:17 | Outpatient (CLI) | payer BC, SELFPAY ==
[2019-09-22 22:03] VITALS: BMI 47.0
--- NOTE | 2021-04-19 | DI.MG.S_ITS ---
BILATERAL DIGITAL SCREENING MAMMOGRAM 3D/2D WITH CAD: 04/19/2021 CLINICAL: Routine screening. Comparison is made to exams dated: 05/28/2017 mammogram, 02/02/2015 mammogram, 11/10/2013 mammogram, and 05/12/2013 mammogram - [facility]. There are scattered fibroglandular elements in both breasts. Current study was also evaluated with a Computer Aided Detection (CAD) system. No significant masses, calcifications, or other findings are seen in either breast. There has been no significant interval change. IMPRESSION: NEGATIVE There is no mammographic evidence of malignancy. A 1 year screening mammogram is recommended. This exam was interpreted at Station ID: [id number]. NOTE: For mammograms, a report in lay terms will be sent to the patient. Approximately 15% of breast malignancies will not be visualized mammographically. In the management of a palpable breast mass, a negative mammogram must not discourage biopsy of a clinically suspicious lesion. Electronically Signed By: Jass early/dianne:04/20/2021 08:59:55 letter sent: Normal Exam ACR BI-RADS Category 1: Negative 3341F
== END ==
PROVIDERS: PCP Family Medicine; Referring Provider Family Medicine; Visit Provider Family Medicine
DX: Z12.31 Encounter for screening mammogram for malignant neoplasm of breast (principal)
CPT/HCPCS: 77063; 77067

== ENCOUNTER → 2022-01-05 16:37 | Outpatient (CLI) | payer BC, SELFPAY ==
[2019-09-22 22:03] VITALS: BMI 47.0
[2022-01-05 17:23] LABS: Amylase 82 U/L (30-110); Lipase 117 U/L (23-300)
== END ==
PROVIDERS: PCP Family Medicine; Referring Provider Family Medicine; Visit Provider Family Medicine
DX: R07.89 Other chest pain (principal)
CPT/HCPCS: 36415; 82150; 83690

== ENCOUNTER → 2022-02-14 13:57 | Outpatient (CLI) | payer BC, SELFPAY ==
[2019-09-22 22:03] VITALS: BMI 47.0
--- NOTE | 2022-02-14 | DI.NM.S_ITS ---
PROCEDURE: NM AUDREY PERF SPECT REST & STR Rest and exercise myocardial perfusion SPECT with gated imaging and ejection fraction RADIOPHARMACEUTICAL: 26.4 mCi Tc-99m sestamibi IV at rest and 25.6 mCi Tc-99m sestamibi IV at peak exercise. A two day-protocol was performed. INDICATIONS: Other chest pain TECHNIQUE: Radiopharmaceutical was injected at peak stress test, and also at rest. SPECT images were obtained. SPECT myocardial perfusion images were displayed in short axis, horizontal long axis, and vertical long axis views. Gated images were reviewed using [employer] software. COMPARISON: None. CARDIAC STRESS: A standard Elder treadmill exercise tolerance test was performed by the patient under the supervision of an attending staff. The patient exercised for 3 minutes and 30 seconds; functional aerobic impairment (XAVIER) is +47%. Hemodynamic data: There is normal blood pressure and heart rate response to exercise stress. Patient achieved 91% of maximum predicted heart rate at peak exercise. Symptoms: Patient denied chest pain during exercise. EKG: No diagnostic EKG changes of ischemia; no ectopy. FINDINGS: Raw data: There is good myocardial labeling by radiotracer. No significant motion artifacts. Wetw-zu-xduyf ratio is 0.22 (normal is less than 0.38 for sestamibi tracer, and less than 0.50 for thallium tracer). Left ventricle function: Gated images demonstrate normal left ventricle wall thickening. No segmental wall motion abnormality. No transient ischemic dilation; TID is 1.03 (normal less than 1.3). The left ventricle resting end-diastolic volume is 74 mL. Left ventricle stress ejection fraction is 83%; normal values are above 45%. Myocardial perfusion: There is normal distribution of activity in the left and right ventricular myocardium. No fixed or reversible perfusion defects. IMPRESSION: Low risk, normal treadmill nuclear stress test 1) No perfusion evidence of ischemia or infarction. 2) Normal left ventricular size, wall motion, and systolic function (EF post stress 83%). 3) No ST changes with exercise. 4) No angina during the study. 5) Moderately to severely reduced exercise tolerance (3.7METs, FA +47%). Target heart rate achieved. Appropriate BP response to exercise. 6) No prior nuclear stress test available for comparison. Dictated by: Alban Downey MD on 02/15/2022 at 16:01 Approved by: Alban Downey MD on 02/15/2022 at 16:04
[2022-02-14 14:32] LABS: COVID19 -Nasal RAPID Negative (Negative)
== END ==
PROVIDERS: PCP Family Medicine; Referring Provider Family Medicine; Visit Provider Family Medicine
DX: R07.89 Other chest pain (principal); Z20.822 Contact with and (suspected) exposure to COVID-19
CPT/HCPCS: 78452; 87635; 93017; A9502

== ENCOUNTER → 2022-06-09 15:13 | Outpatient (CLI) | payer BC, SELFPAY ==
[2019-09-22 22:03] VITALS: BMI 47.0
--- NOTE | 2022-06-09 | DI.MG.S_ITS ---
BILATERAL DIGITAL SCREENING MAMMOGRAM 3D/2D WITH CAD: 06/09/2022 CLINICAL: Routine screening. Comparison is made to exams dated: 04/19/2021 mammogram, 05/28/2017 mammogram, and 02/02/2015 mammogram - [facility]. There are scattered areas of fibroglandular density in both breasts (category b / 25%-50% glandular tissue). Current study was also evaluated with a Computer Aided Detection (CAD) system. There are benign vascular calcifications in both breasts. No significant masses, calcifications, or other findings are seen in either breast. There has been no significant interval change. IMPRESSION: BENIGN There is no mammographic evidence of malignancy. A 1 year screening mammogram is recommended. Based on the Tyrer Cuzick model (a risk assessment model) the patient's lifetime risk is 5.8% and her 10 year risk is 2.4%. According to the ACR, ACS, and NCCN guidelines, an annual breast MRI exam along with mammogram is recommended if the patient's lifetime risk is 20% or greater. This exam was interpreted at Station ID: [id number]. NOTE: For mammograms, a report in lay terms will be sent to the patient. Approximately 15% of breast malignancies will not be visualized mammographically. In the management of a palpable breast mass, a negative mammogram must not discourage biopsy of a clinically suspicious lesion. Electronically Signed By: Nuria womack/dianne:06/09/2022 15:40:23 letter sent: Normal Exam ACR BI-RADS Category 2: Benign Finding(s) 3342F
== END ==
PROVIDERS: PCP Family Medicine; Referring Provider Family Medicine; Visit Provider Family Medicine
DX: Z12.31 Encounter for screening mammogram for malignant neoplasm of breast (principal)
CPT/HCPCS: 77063; 77067

== ENCOUNTER → 2023-11-20 12:07 | Outpatient (CLI) | payer BC, SELFPAY ==
[2019-09-22 22:03] VITALS: BMI 47.0
--- NOTE | 2023-11-20 12:10 | DI.RAD.S_ITS ---
PROCEDURE: XR CLAVICLE RT INDICATIONS: Other specified disorders of bone, shoulder TECHNIQUE: 2 views of the clavicle were acquired. COMPARISON: None. FINDINGS: Bones: There are no osseous abnormalities. Joints: Severe acromioclavicular degeneration is noted. The sternoclavicular and glenohumeral joints are normal. Soft tissues: Minor calcification rotator cuff insertion on the greater tuberosity appreciated IMPRESSION: Severe acromioclavicular degeneration. Calcific tendinitis distal rotator cuff. Dictated by: Sumit Cooper M.D. on 11/21/2023 at 10:28 Approved by: Sumit Cooper M.D. on 11/21/2023 at 10:30
== END ==
LOC: RAD 12:09
PROVIDERS: PCP Family Medicine; Referring Provider Family Medicine; Visit Provider Family Medicine
DX: M75.31 Calcific tendinitis of right shoulder (principal); M19.011 Primary osteoarthritis, right shoulder; M25.511 Pain in right shoulder
CPT/HCPCS: 73000

== ENCOUNTER → 2023-11-28 15:20 | Outpatient (CLI) | payer BC, SELFPAY ==
[2019-09-22 22:03] VITALS: BMI 47.0
--- NOTE | 2023-11-28 15:21 | DI.MG.S_ITS ---
BILATERAL DIGITAL SCREENING MAMMOGRAM 3D/2D WITH CAD: 11/28/2023 CLINICAL: Routine screening. Comparison is made to exams dated: 06/09/2022 mammogram, 04/19/2021 mammogram, and 05/28/2017 mammogram - [facility]. There are scattered areas of fibroglandular density (category b / 25%-50% glandular tissue). Current study was also evaluated with a Computer Aided Detection (CAD) system. There are benign vascular calcifications in both breasts. No significant masses, calcifications, or other findings are seen in either breast. There has been no significant interval change. IMPRESSION: BENIGN There is no mammographic evidence of malignancy. A 1 year screening mammogram is recommended. Based on the Tyrer Cuzick model (a risk assessment model) the patient's lifetime risk is 5.7% and her 10 year risk is 2.4%. According to the ACR, ACS, and NCCN guidelines, an annual breast MRI exam along with mammogram is recommended if the patient's lifetime risk is 20% or greater. This exam was interpreted at Station ID: [id number]. NOTE: For mammograms, a report in lay terms will be sent to the patient. Approximately 15% of breast malignancies will not be visualized mammographically. In the management of a palpable breast mass, a negative mammogram must not discourage biopsy of a clinically suspicious lesion. Electronically Signed By: Jass early/dianne:11/29/2023 08:42:34 letter sent: Normal Exam ACR BI-RADS Category 2: Benign
== END ==
PROVIDERS: PCP Family Medicine; Referring Provider Family Medicine; Visit Provider Family Medicine
DX: Z12.31 Encounter for screening mammogram for malignant neoplasm of breast (principal)
CPT/HCPCS: 77063; 77067

== ENCOUNTER 2024-11-28 06:45 | Day surgery (SDC) | payer BC, SELFPAY ==
[2019-09-22 22:03] VITALS: BMI 47.0
--- NOTE | 2024-11-28 | PATH_ITS ---
[facility] Accession Number: [id number] No. of containers..02 Tissue . 01 Material submitted: . PART A: colon - COLON, ASCENDING POLYP PART B: colon - COLON, DESCENDING POLYP . 01 Diagnosis: A: ASCENDING COLON, POLYPECTOMY: Tubular adenoma. - B: DESENDING COLON, POLYPECTOMY: Tubular adenoma. [facility] 12/09/2024 1540 Local . 01 Electronically signed: . Ignacia Hamlin MD, Pathologist NPI- [id number] . 01 Gross description: . A. Received in formalin with two identifiers and ascending colon polyp are two dumont soft tissue fragments ranging from 0.3 to 0.3 cm in greatest dimension, entirely submitted in A1. B. Received in formalin with two identifiers and descending colon polyp is a single dumont soft tissue fragment measuring 0.5 cm in greatest dimension, entirely submitted in B1. (AER:[id number]) /MRV 12/03/2024 1358 Local . 01 Pathologist provided ICD-10: Z12.11 . 01 CPT . 798151, [id number] Specimen Comment: A courtesy copy of this report has been sent to [phone] Performed at: [address] [facility] [address] [address], [place], [place] [id number] MD Rancho Anthony MD Phone: [phone]
[2024-11-28 07:35] VITALS: BP 170/94; PULSE 107; RESP 16; TEMP 36.8; O2SAT 96
--- NOTE | 2024-11-28 07:42 | PM.HP.IH.1 ---
History of Present Illness History of Present Illness Date Patient Seen: 11/28/24 Time Patient Seen: 07:42 Chief complaint: Colonoscopy Narrative: Charley is a 64 year old woman here for a colonoscopy. Her last one was about 11 years ago and she was told she should go 10 years till her next colonoscopy. No family history of colon cancer. [facility] Social History household members: spouse Meds Home Medications and Allergies Home Medications ?Medication ?Instructions ?Recorded ?Confirmed ?Type POTASSIUM (#POTASSIUM) 75 mg PO DAILY ##0 05/08/11 09/22/19 History VITAMIN D 1,000 iu PO DAILY ##0 05/08/11 09/23/19 History cyanocobalamin (vitamin B-12) 50 50 mcg PO DAILY ##0 05/08/11 09/22/19 History mcg lozenges (Vitamin B-12) Metformin Hydrochloride 500 mg PO BID DM2 ##0 12/04/11 11/28/24 History (#GLUCOPHAGE) bupropion HCl 300 mg 24 hr tablet, 300 mg PO DAILY 09/22/19 11/28/24 History extended release glipizide 5 mg tablet, extended 5 mg PO BID 09/22/19 11/28/24 History release 24 hr hydrochlorothiazide 25 mg tablet 25 mg PO DAILY 09/22/19 11/28/24 History losartan 100 mg tablet 100 mg PO DAILY 09/22/19 11/28/24 History potassium chloride 10 mEq 10 meq PO DAILY 09/22/19 09/22/19 History tablet,extended release(part/cryst) (Klor-Con M) meclizine 12.5 mg tablet 25 mg (2 x 12.5 mg) PO Q6HR PRN 09/25/19 Rx dizziness #60 tabs clonidine HCl 0.1 mg tablet 0.2 mg PO Q12H 11/28/24 11/28/24 History insulin glargine 100 unit/mL (3 30 unit SUBCUT ONCE PM 11/28/24 11/28/24 History mL) subcutaneous pen (Lantus Solostar U-100 Insulin) mirtazapine 30 mg tablet 30 mg PO ONCE PM 11/28/24 11/28/24 History semaglutide 1 mg/dose (4 mg/3 mL) 1 mg SUBCUT .q week 11/28/24 11/28/24 History subcutaneous pen injector (Ozempic) Allergies Allergy/AdvReac Type Severity Reaction Status Date / Time Sulfa (Sulfonamide Allergy Mild Verified 11/28/24 07:23 Antibiotics) (SULFA (SULFONAMIDE ANTIBIOTICS)) Exam Vital Signs (past 8 hours): - 11/28/24 07:35 Temperature 98.3 F Pulse Rate 107 H Respiratory Rate 16 Blood Pressure 170/94 H Pulse Oximetry 96 Oxygen Delivery Method Room Air Oxygen Delivery Method Room Air Const General: healthy appearing Objective Labs Labs: Laboratory Results - last 24 hr 11/28/24 07:22 POC Whole Bld Glucose 181 H Assessment & Plan Assessment and plan (1) Colon cancer screening: Status: Acute Plan Colonoscopy Time-Based Coding :: [TOTAL MINUTES] spent with patient and on the chart (including review of chart, obtaining history, exam, reviewing outside data, placing orders, documenting exam and treatment plan, and counseling patient) on [DATE]. PROFEE Aging Department Supervisor Document charge(s): No
[2024-11-28] MEDS: LACTATED RINGERS 1,000 ML 42 ML IV (07:43)
[2024-11-28 08:30] VITALS: BP 127/87; PULSE 92; RESP 13; TEMP 36.7; O2SAT 97
--- NOTE | 2024-11-28 08:33 | PM.OP.COLON ---
Operative Date/Time/Diagnoses Date of procedure: 11/28/24 Time of procedure: 08:33 Pre-op diagnosis: Colon cancer screening Post-op diagnosis: same Procedure & Clinicians Study performed: Colonoscopy Same procedure(s) as scheduled: Yes Surgeon: Francisco Prasad Anesthesia Type: MAC +/- Procedure Notes Procedure in detail: Surgeon: Francisco Prasad MD Anesthesia: Nancy Chapincito DO Procedure: The patient was brought to the endoscopy suite, placed in left lateral decubitus position. The patient was connected to monitoring devices. A time-out was performed. Sedation was administered. Once the patient was adequately sedated, a digital rectal exam was performed and was normal. The scope was then inserted and advanced to the cecum where the appendiceal orifice was identified and photographed. The scope was then slowly withdrawn over greater than 6 minutes. The mucosa was thoroughly inspected. There was a 5 mm polyp in the ascending colon removed with a cold snare. There was a 5 mm polyp in the descending colon removed with a cold snare. The scope was retroflexed in the rectum. No other abnormalities were found. The scope was straightened and removed. The patient was awakened and brought to recovery. Scope withdrawal time: 11 minutes Sedation time: 16 minutes EBL: 5 mL Findings: 5 mm polyp in the ascending colon and 5 mm polyp in the descending colon Post-procedure Disposition: PACU
[2024-11-28 08:37] VITALS: BP 120/82; PULSE 88; RESP 19; O2SAT 98
== END 2024-11-28 08:48 | disposition home or self-care (01) ==
PROVIDERS: PCP Family Medicine; Referring Provider Surgery; Visit Provider Surgery
PROC: 0DJD8ZZ Inspection of Lower Intestinal Tract, Via Natural or Artificial Opening Endoscopic (ICD-10-PCS; CPT 45378; principal; 2024-11-28 08:15)
DX: Z12.11 Encounter for screening for malignant neoplasm of colon (principal); D12.2 Benign neoplasm of ascending colon; D12.4 Benign neoplasm of descending colon
CPT/HCPCS: 45385; 82962; J2704; J7120